=== PATIENT | male | born 1935 | race Caucasian/White ===

== ENCOUNTER 2018-12-25 20:39 | Inpatient (IN) ==
[2018-12-25 21:22] LABS: Basophils % 0.2 % (0.0-0.8); Eosinophils % 0.1 % (0.00-10.9); Hematocrit 36.1 VOL% (42.0-52.0); Immature Granulocytes % 0.5 %; Immature Granulocytes Absolute 0.05 #; Lymphocytes # 0.6 10*3/uL (1.4-4.0); Lymphocytes % 5.3 % (21.2-54.2); Mean Corpuscular HGB Conc 33.2 GM/DL (32-36); Mean Corpuscular Volume 105.6 FL (87-102); Mean Platelet Volume 9.7 FL (9.6-12.0); Monocytes % 6.4 % (1.7-12.7); Neutrophils % 87.5 % (38.7-73.9); Platelet Count 282 T/CUMM (130-400); Red Blood Count 3.42 MC/CUMM (3.8-5.5); White Blood Count 10.7 T/CUMM (4-12)
[2018-12-25 21:38] LABS: Albumin 3.4 G/DL (3.4-5.0); Bilirubin,Total 0.5 MG/DL (0.2-1.0); Calcium 8.5 MG/DL (8.5-10.1); Total Protein 7.2 G/DL (6.4-8.3)
[2018-12-25] MEDS ORDERED: CEFEPIME 2,000 MG in SODIUM CHLORIDE 0.9% 100 ML IV STA ×2 (22:16→22:18)
[2018-12-25] MEDS ORDERED: VANCOMYCIN INJ 1,000 MG in SODIUM CHLORIDE 0.9% 250 ML IV STA ×2 (22:16→22:20)
[2018-12-25] MEDS ORDERED: FUROSEMIDE 40 MG/4 ML VIAL IV STA (22:27)
[2018-12-25] MEDS ORDERED: ACETAMINOPHEN 325 MG TABLET PO PRN (22:30)
[2018-12-25] MEDS ORDERED: ONDANSETRON 4 MG/2 ML VIAL IV PRN (22:30)
[2018-12-26 00:05] LABS: Apearance,Urine CLEAR (Clear); Bilirubin,Urine Negative (Negative); Blood, Urine Negative (Negative); Glucose,Urine (UA) Negative (Negative); Ketones,Urine Negative (Negative); Mucus,Urine Occasional /LPF (Occasional); Nitrite,Urine Negative (Negative); Protein,Urine Negative; RBC,Urine 2 /HPF (0-4); Urine Color Yellow (Yellow); Urine Specific Gravity 1.016 (1.001-1.035); Urine Urobilinogen < 2.0 EU/DL (0.2-1.0); WBC,Urine 1 /HPF (0-6)
[2018-12-26] MEDS: ALBUTEROL/IPRATROPIUM 3 ML NEB RESP TX SCH ×4 (00:55→20:25)
[2018-12-26] MEDS: ATORVASTATIN 10 MG TABLET PO SCH (01:06)
[2018-12-26] MEDS: PANTOPRAZOLE 40 MG TABLET PO SCH ×3 (01:06→20:56)
[2018-12-26 05:21] LABS: Basophils % 0.1 % (0.0-0.8); Hematocrit 33.6 VOL% (42.0-52.0); Hemoglobin 11.2 GM/DL (14.0-18.0); Immature Granulocytes % 0.3 %; Immature Granulocytes Absolute 0.03 #; Lymphocytes # 0.5 10*3/uL (1.4-4.0); Lymphocytes % 5.2 % (21.2-54.2); Mean Corpuscular HGB Conc 33.3 GM/DL (32-36); Mean Corpuscular Volume 105.3 FL (87-102); Mean Platelet Volume 9.4 FL (9.6-12.0); Monocytes % 8.1 % (1.7-12.7); Neutrophils % 86.3 % (38.7-73.9); Platelet Count 256 T/CUMM (130-400); Red Blood Count 3.19 MC/CUMM (3.8-5.5); Red Cell Distribution Width 12.9 % (9.3-17.3); White Blood Count 9.9 T/CUMM (4-12)
[2018-12-26 05:46] LABS: Bilirubin,Total 0.5 MG/DL (0.2-1.0); Calcium 8.2 MG/DL (8.5-10.1); Osmolality,Calculated 275.8 MOS/KG (273-304); Total Protein 6.5 G/DL (6.4-8.3)
[2018-12-26] MEDS: CEFEPIME 2,000 MG in SODIUM CHLORIDE 0.9% 100 ML IV SCH ×3 (06:10→21:02)
[2018-12-26] MEDS ORDERED: HYDROXYCHLOROQUINE 200 MG TABLET PO SCH (09:00)
[2018-12-26] MEDS ORDERED: PNEUMOCOCCAL VACCINE (13 VALENT) 0.5 ML SYRINGE IM ONE (09:00)
[2018-12-26] MEDS ORDERED: SODIUM CHLORIDE 0.9% 1,000 ML IV SCH (11:00)
[2018-12-26] MEDS: VANCOMYCIN INJ 1,000 MG in SODIUM CHLORIDE 0.9% 250 ML IV SCH (12:25)
[2018-12-26] MEDS: SERTRALINE 100 MG TABLET PO SCH (12:26)
[2018-12-26] MEDS: FINASTERIDE 5 MG TABLET PO SCH (12:26)
[2018-12-26] MEDS: RANOLAZINE 500 MG TABLET PO SCH ×2 (12:26→20:56)
[2018-12-26] MEDS: MULTIVITAMIN (BEROCCA) TABLET PO SCH (12:26)
[2018-12-26] MEDS: CETIRIZINE 10 MG TABLET PO SCH (12:26)
[2018-12-26] MEDS: FEXOFENADINE 180 MG TABLET PO SCH (12:26)
[2018-12-26] MEDS: GEMFIBROZIL 600 MG TABLET PO SCH (12:27)
[2018-12-26] MEDS ORDERED: FUROSEMIDE 40 MG/4 ML VIAL ONE (14:48)
[2018-12-26] MEDS: methylPREDNISolone SOD SUC 125 MG/2 ML VIAL IV SCH ×2 (15:05→21:01)
[2018-12-26] MEDS: FUROSEMIDE 40 MG/4 ML VIAL IV SCH (15:07)
[2018-12-26] MEDS: MELATONIN 3 MG TABLET PO SCH (20:56)
[2018-12-26] MEDS: PYRIDOXINE 50 MG TABLET PO SCH (20:57)
[2018-12-27] MEDS: VANCOMYCIN INJ 1,000 MG in SODIUM CHLORIDE 0.9% 250 ML IV SCH ×2 (01:00→12:42)
[2018-12-27] MEDS: ALBUTEROL/IPRATROPIUM 3 ML NEB RESP TX SCH ×4 (01:34→19:52)
[2018-12-27 04:37] LABS: Hematocrit 33.4 VOL% (42.0-52.0); Hemoglobin 11.1 GM/DL (14.0-18.0); Immature Granulocytes % 0.3 %; Immature Granulocytes Absolute 0.03 #; Lymphocytes # 0.3 10*3/uL (1.4-4.0); Mean Corpuscular HGB Conc 33.2 GM/DL (32-36); Mean Corpuscular Volume 104.7 FL (87-102); Mean Platelet Volume 9.9 FL (9.6-12.0); Monocytes % 1.5 % (1.7-12.7); Neutrophils % 95.2 % (38.7-73.9); Platelet Count 276 T/CUMM (130-400); Red Blood Count 3.19 MC/CUMM (3.8-5.5); Red Cell Distribution Width 12.8 % (9.3-17.3); White Blood Count 9.1 T/CUMM (4-12)
[2018-12-27 04:57] LABS: Albumin 2.9 G/DL (3.4-5.0); Bilirubin,Total 0.7 MG/DL (0.2-1.0); Calcium 8.6 MG/DL (8.5-10.1); Osmolality,Calculated 295.8 MOS/KG (273-304); Total Protein 6.3 G/DL (6.4-8.3)
[2018-12-27] MEDS: methylPREDNISolone SOD SUC 125 MG/2 ML VIAL IV SCH ×3 (05:26→21:10)
[2018-12-27] MEDS: CEFEPIME 2,000 MG in SODIUM CHLORIDE 0.9% 100 ML IV SCH ×3 (05:26→21:10)
[2018-12-27 05:43] LABS: Lymphocytes 6 % (20-55); Segmented Neutrophils 93 % (50-85); Total Cells Counted 100
[2018-12-27 05:44] LABS: Anisocytosis 1+; Platelet Estimate Normal
[2018-12-27] MEDS: MULTIVITAMIN (BEROCCA) TABLET PO SCH (08:46)
[2018-12-27] MEDS: PANTOPRAZOLE 40 MG TABLET PO SCH ×2 (08:46→21:11)
[2018-12-27] MEDS: RANOLAZINE 500 MG TABLET PO SCH ×2 (08:46→21:11)
[2018-12-27] MEDS: CETIRIZINE 10 MG TABLET PO SCH (08:46)
[2018-12-27] MEDS: GEMFIBROZIL 600 MG TABLET PO SCH (08:46)
[2018-12-27] MEDS: FINASTERIDE 5 MG TABLET PO SCH (08:46)
[2018-12-27] MEDS: FEXOFENADINE 180 MG TABLET PO SCH (08:46)
[2018-12-27] MEDS: SERTRALINE 100 MG TABLET PO SCH (08:46)
[2018-12-27] MEDS: FUROSEMIDE 40 MG/4 ML VIAL IV SCH (08:46)
[2018-12-27] MEDS: carvediloL 3.125 MG TABLET PO SCH ×2 (10:42→21:11)
[2018-12-27] MEDS: NITROGLYCERIN 2% OINT 1 INCH/GM PACK TOP SCH ×2 (12:42→17:45)
[2018-12-27] MEDS: MELATONIN 3 MG TABLET PO SCH (21:11)
[2018-12-27] MEDS: PYRIDOXINE 50 MG TABLET PO SCH (22:04)
[2018-12-28] MEDS: VANCOMYCIN INJ 1,000 MG in SODIUM CHLORIDE 0.9% 250 ML IV SCH (00:15)
[2018-12-28] MEDS: NITROGLYCERIN 2% OINT 1 INCH/GM PACK TOP SCH ×4 (00:15→17:54)
[2018-12-28] MEDS: ALBUTEROL/IPRATROPIUM 3 ML NEB RESP TX SCH ×4 (00:30→18:42)
[2018-12-28 05:06] LABS: Basophils % 0.1 % (0.0-0.8); Hematocrit 32.4 VOL% (42.0-52.0); Hemoglobin 10.9 GM/DL (14.0-18.0); Immature Granulocytes % 0.8 %; Immature Granulocytes Absolute 0.14 #; Lymphocytes # 0.3 10*3/uL (1.4-4.0); Lymphocytes % 1.8 % (21.2-54.2); Mean Corpuscular HGB Conc 33.6 GM/DL (32-36); Mean Corpuscular Volume 102.9 FL (87-102); Mean Platelet Volume 9.7 FL (9.6-12.0); Monocytes % 2.8 % (1.7-12.7); Neutrophils % 94.5 % (38.7-73.9); Platelet Count 328 T/CUMM (130-400); Red Blood Count 3.15 MC/CUMM (3.8-5.5); White Blood Count 16.9 T/CUMM (4-12)
[2018-12-28 05:26] LABS: Albumin 2.7 G/DL (3.4-5.0); Bilirubin,Total 0.6 MG/DL (0.2-1.0); Calcium 8.7 MG/DL (8.5-10.1); Osmolality,Calculated 293.4 MOS/KG (273-304); Total Protein 6.5 G/DL (6.4-8.3)
[2018-12-28 05:32] LABS: Lymphocytes 1 % (20-55); Segmented Neutrophils 96 % (50-85); Total Cells Counted 100
[2018-12-28 05:33] LABS: Hypochromasia 1+; Ovalocytes Slight; Platelet Estimate Adequate
[2018-12-28] MEDS: CEFEPIME 2,000 MG in SODIUM CHLORIDE 0.9% 100 ML IV SCH (06:01)
[2018-12-28] MEDS: methylPREDNISolone SOD SUC 125 MG/2 ML VIAL IV SCH ×3 (06:02→22:13)
[2018-12-28 11:59] LABS: Folate > 24.0 NG/ML (5.4-24.0); Vitamin B12 1136 PG/ML (211-911)
[2018-12-28] MEDS: MEROPENEM 500 MG in SODIUM CHLORIDE 0.9% 100 ML IV SCH ×2 (12:33→20:02)
[2018-12-28] MEDS: RANOLAZINE 500 MG TABLET PO SCH ×2 (12:46→22:13)
[2018-12-28] MEDS: GEMFIBROZIL 600 MG TABLET PO SCH (12:47)
[2018-12-28] MEDS: FINASTERIDE 5 MG TABLET PO SCH (12:47)
[2018-12-28] MEDS: carvediloL 3.125 MG TABLET PO SCH (12:47)
[2018-12-28] MEDS: MULTIVITAMIN (BEROCCA) TABLET PO SCH (12:47)
[2018-12-28] MEDS: CETIRIZINE 10 MG TABLET PO SCH (12:47)
[2018-12-28] MEDS: SERTRALINE 100 MG TABLET PO SCH (12:47)
[2018-12-28] MEDS: FEXOFENADINE 180 MG TABLET PO SCH (12:47)
[2018-12-28] MEDS: PANTOPRAZOLE 40 MG TABLET PO SCH ×2 (12:48→22:13)
[2018-12-28] MEDS: carvediloL 6.25 MG TABLET PO SCH (22:13)
[2018-12-28] MEDS: PYRIDOXINE 50 MG TABLET PO SCH (22:13)
[2018-12-28] MEDS: MELATONIN 3 MG TABLET PO SCH (22:13)
[2018-12-29] MEDS: NITROGLYCERIN 2% OINT 1 INCH/GM PACK TOP SCH ×4 (00:28→17:07)
[2018-12-29] MEDS: MEROPENEM 500 MG in SODIUM CHLORIDE 0.9% 100 ML IV SCH ×3 (03:36→20:19)
[2018-12-29 04:37] LABS: Basophils % 0.1 % (0.0-0.8); Hematocrit 32.6 VOL% (42.0-52.0); Hemoglobin 10.9 GM/DL (14.0-18.0); Immature Granulocytes % 1.1 %; Immature Granulocytes Absolute 0.17 #; Lymphocytes # 0.3 10*3/uL (1.4-4.0); Mean Corpuscular HGB Conc 33.4 GM/DL (32-36); Mean Corpuscular Volume 102.8 FL (87-102); Mean Platelet Volume 9.7 FL (9.6-12.0); Monocytes % 3.3 % (1.7-12.7); Neutrophils % 93.5 % (38.7-73.9); Platelet Count 342 T/CUMM (130-400); Red Blood Count 3.17 MC/CUMM (3.8-5.5); Red Cell Distribution Width 12.7 % (9.3-17.3); White Blood Count 15.9 T/CUMM (4-12)
[2018-12-29 05:04] LABS: Calcium 8.5 MG/DL (8.5-10.1); Osmolality,Calculated 290.8 MOS/KG (273-304)
[2018-12-29 05:06] LABS: Hypochromasia 1+; Platelet Estimate Adequate
[2018-12-29] MEDS: methylPREDNISolone SOD SUC 125 MG/2 ML VIAL IV SCH ×3 (05:36→21:01)
[2018-12-29] MEDS: ALBUTEROL/IPRATROPIUM 3 ML NEB RESP TX SCH ×4 (06:59→19:51)
[2018-12-29] MEDS: PANTOPRAZOLE 40 MG TABLET PO SCH ×2 (10:29→21:01)
[2018-12-29] MEDS: GEMFIBROZIL 600 MG TABLET PO SCH (10:29)
[2018-12-29] MEDS: RANOLAZINE 500 MG TABLET PO SCH ×2 (10:29→21:00)
[2018-12-29] MEDS: FEXOFENADINE 180 MG TABLET PO SCH (10:29)
[2018-12-29] MEDS: FINASTERIDE 5 MG TABLET PO SCH (10:30)
[2018-12-29] MEDS: MULTIVITAMIN (BEROCCA) TABLET PO SCH (10:30)
[2018-12-29] MEDS: SERTRALINE 100 MG TABLET PO SCH (10:30)
[2018-12-29] MEDS: CETIRIZINE 10 MG TABLET PO SCH (10:30)
[2018-12-29] MEDS: carvediloL 6.25 MG TABLET PO SCH ×2 (10:30→21:01)
[2018-12-29] MEDS: FUROSEMIDE 20 MG/2 ML VIAL IV SCH ×2 (10:31→17:07)
[2018-12-29] MEDS: ATORVASTATIN 10 MG TABLET PO SCH (10:38)
[2018-12-29 14:09] LABS: Myeloperoxidase Antibody < 0.2 U
[2018-12-29] MEDS: POTASSIUM CHLORIDE 10 MEQ TABLET PO SCH ×2 (15:04→21:00)
[2018-12-29] MEDS: MELATONIN 3 MG TABLET PO SCH (21:00)
[2018-12-29] MEDS: PYRIDOXINE 50 MG TABLET PO SCH (21:00)
[2018-12-30] MEDS: NITROGLYCERIN 2% OINT 1 INCH/GM PACK TOP SCH ×4 (00:09→18:57)
[2018-12-30] MEDS: ALBUTEROL/IPRATROPIUM 3 ML NEB RESP TX SCH ×2 (01:56→08:04)
[2018-12-30] MEDS: FUROSEMIDE 20 MG/2 ML VIAL IV SCH (03:15)
[2018-12-30] MEDS: MEROPENEM 500 MG in SODIUM CHLORIDE 0.9% 100 ML IV SCH ×3 (03:22→21:48)
[2018-12-30 05:15] LABS: Basophils % 0.1 % (0.0-0.8); Hematocrit 31.7 VOL% (42.0-52.0); Hemoglobin 10.6 GM/DL (14.0-18.0); Immature Granulocytes % 0.9 %; Immature Granulocytes Absolute 0.12 #; Lymphocytes # 0.3 10*3/uL (1.4-4.0); Lymphocytes % 2.3 % (21.2-54.2); Mean Corpuscular HGB Conc 33.4 GM/DL (32-36); Mean Corpuscular Volume 103.3 FL (87-102); Mean Platelet Volume 9.7 FL (9.6-12.0); Monocytes % 3.2 % (1.7-12.7); Neutrophils % 93.5 % (38.7-73.9); Platelet Count 338 T/CUMM (130-400); Red Blood Count 3.07 MC/CUMM (3.8-5.5); Red Cell Distribution Width 12.8 % (9.3-17.3); White Blood Count 13.2 T/CUMM (4-12)
[2018-12-30 05:27] LABS: INR 1.1; PT Patient Result 11.5 SECS (9.6-12.2); Partial Thromboplastin Time 24.7 SECS (20.8-36.0)
[2018-12-30 05:40] LABS: Lymphocytes 1 % (20-55); Platelet Estimate Adequate; Segmented Neutrophils 95 % (50-85); Total Cells Counted 100
[2018-12-30 05:41] LABS: Hypochromasia 1+; Ovalocytes Slight
[2018-12-30 05:45] LABS: Calcium 9.2 MG/DL (8.5-10.1); Osmolality,Calculated 304.1 MOS/KG (273-304)
[2018-12-30] MEDS: methylPREDNISolone SOD SUC 125 MG/2 ML VIAL IV SCH ×3 (06:42→22:45)
[2018-12-30] MEDS ORDERED: diphenhydrAMINE 50 MG/1 ML VIAL IM ONE (08:00)
[2018-12-30] MEDS ORDERED: BENZONATATE 100 MG CAPSULE PO ONE (08:00)
[2018-12-30] MEDS ORDERED: LIDOCAINE 1% 20 ML VIAL MISC INJ ONE (08:30)
[2018-12-30] MEDS ORDERED: LIDOCAINE 2% 20 ML VIAL RESP TX ONE (08:30)
[2018-12-30] MEDS ORDERED: LIDOCAINE 2% VISCOUS 100 ML BOTTLE SWISH/SPIT ONE (08:30)
[2018-12-30] MEDS: POTASSIUM CHLORIDE 10 MEQ TABLET PO SCH ×3 (11:15→21:41)
[2018-12-30] MEDS: GEMFIBROZIL 600 MG TABLET PO SCH (11:16)
[2018-12-30] MEDS: RANOLAZINE 500 MG TABLET PO SCH ×2 (11:16→21:41)
[2018-12-30] MEDS: FEXOFENADINE 180 MG TABLET PO SCH (11:17)
[2018-12-30] MEDS: MULTIVITAMIN (BEROCCA) TABLET PO SCH (11:18)
[2018-12-30] MEDS: FINASTERIDE 5 MG TABLET PO SCH (11:18)
[2018-12-30] MEDS: PANTOPRAZOLE 40 MG TABLET PO SCH ×2 (11:19→21:41)
[2018-12-30] MEDS: CETIRIZINE 10 MG TABLET PO SCH (11:19)
[2018-12-30] MEDS: carvediloL 6.25 MG TABLET PO SCH ×2 (11:20→21:41)
[2018-12-30] MEDS: SERTRALINE 100 MG TABLET PO SCH (11:20)
[2018-12-30] MEDS: IPRATROPIUM 500 MCG/2.5 ML NEB RESP TX SCH (15:53)
[2018-12-30] MEDS ORDERED: DONEPEZIL 5 MG TABLET PO SCH (21:00)
[2018-12-30] MEDS: PYRIDOXINE 50 MG TABLET PO SCH (21:41)
[2018-12-30] MEDS: MELATONIN 3 MG TABLET PO SCH (21:51)
[2018-12-31] MEDS: IPRATROPIUM 500 MCG/2.5 ML NEB RESP TX SCH ×4 (00:17→23:10)
[2018-12-31] MEDS: NITROGLYCERIN 2% OINT 1 INCH/GM PACK TOP SCH ×5 (00:17→23:44)
[2018-12-31] MEDS: MEROPENEM 500 MG in SODIUM CHLORIDE 0.9% 100 ML IV SCH ×3 (04:09→21:23)
[2018-12-31 05:21] LABS: Basophils % 0.1 % (0.0-0.8); Hematocrit 34.9 VOL% (42.0-52.0); Hemoglobin 11.6 GM/DL (14.0-18.0); Immature Granulocytes % 0.8 %; Immature Granulocytes Absolute 0.12 #; Lymphocytes # 0.4 10*3/uL (1.4-4.0); Lymphocytes % 2.8 % (21.2-54.2); Mean Corpuscular HGB Conc 33.2 GM/DL (32-36); Mean Corpuscular Volume 104.2 FL (87-102); Mean Platelet Volume 9.7 FL (9.6-12.0); Monocytes % 4.5 % (1.7-12.7); Neutrophils % 91.8 % (38.7-73.9); Platelet Count 396 T/CUMM (130-400); Red Blood Count 3.35 MC/CUMM (3.8-5.5); Red Cell Distribution Width 12.8 % (9.3-17.3); White Blood Count 14.8 T/CUMM (4-12)
[2018-12-31 05:45] LABS: Hypochromasia 1+; Lymphocytes 1 % (20-55); Ovalocytes Slight; Platelet Estimate Adequate; Segmented Neutrophils 94 % (50-85); Total Cells Counted 100
[2018-12-31 05:51] LABS: Calcium 8.8 MG/DL (8.5-10.1); Osmolality,Calculated 300.4 MOS/KG (273-304)
[2018-12-31] MEDS: carvediloL 6.25 MG TABLET PO SCH ×2 (09:29→21:18)
[2018-12-31] MEDS: FEXOFENADINE 180 MG TABLET PO SCH (09:29)
[2018-12-31] MEDS: FINASTERIDE 5 MG TABLET PO SCH (09:29)
[2018-12-31] MEDS: CETIRIZINE 10 MG TABLET PO SCH (09:29)
[2018-12-31] MEDS: PANTOPRAZOLE 40 MG TABLET PO SCH ×2 (09:29→21:18)
[2018-12-31] MEDS: GEMFIBROZIL 600 MG TABLET PO SCH (09:29)
[2018-12-31] MEDS: MULTIVITAMIN (BEROCCA) TABLET PO SCH (09:30)
[2018-12-31] MEDS: MEMANTINE 5 MG TABLET PO SCH (09:30)
[2018-12-31] MEDS: SERTRALINE 100 MG TABLET PO SCH (09:30)
[2018-12-31] MEDS: POTASSIUM CHLORIDE 10 MEQ TABLET PO SCH ×3 (09:30→21:18)
[2018-12-31] MEDS: RANOLAZINE 500 MG TABLET PO SCH ×2 (09:30→21:18)
[2018-12-31] MEDS: methylPREDNISolone SOD SUC 125 MG/2 ML VIAL IV SCH ×2 (11:09→23:43)
[2018-12-31] MEDS: MELATONIN 3 MG TABLET PO SCH (21:18)
[2018-12-31] MEDS: PYRIDOXINE 50 MG TABLET PO SCH (21:18)
[2019-01-01] MEDS: MEROPENEM 500 MG in SODIUM CHLORIDE 0.9% 100 ML IV SCH (03:43)
[2019-01-01] MEDS: NITROGLYCERIN 2% OINT 1 INCH/GM PACK TOP SCH (05:44)
[2019-01-01 06:48] LABS: Basophils % 0.1 % (0.0-0.8); Hematocrit 33.2 VOL% (42.0-52.0); Hemoglobin 10.8 GM/DL (14.0-18.0); Immature Granulocytes % 0.6 %; Immature Granulocytes Absolute 0.09 #; Lymphocytes # 0.5 10*3/uL (1.4-4.0); Lymphocytes % 3.2 % (21.2-54.2); Mean Corpuscular HGB Conc 32.5 GM/DL (32-36); Mean Corpuscular Volume 105.1 FL (87-102); Mean Platelet Volume 9.5 FL (9.6-12.0); Monocytes % 4.3 % (1.7-12.7); Neutrophils % 91.8 % (38.7-73.9); Platelet Count 331 T/CUMM (130-400); Red Blood Count 3.16 MC/CUMM (3.8-5.5); Red Cell Distribution Width 13.1 % (9.3-17.3); White Blood Count 13.9 T/CUMM (4-12)
[2019-01-01 07:15] LABS: Calcium 8.4 MG/DL (8.5-10.1); Osmolality,Calculated 301.4 MOS/KG (273-304)
[2019-01-01 07:44] LABS: Hypochromasia 1+; Lymphocytes 4 % (20-55); Platelet Estimate Adequate; Segmented Neutrophils 92 % (50-85); Total Cells Counted 100
[2019-01-01] MEDS: IPRATROPIUM 500 MCG/2.5 ML NEB RESP TX SCH (08:08)
[2019-01-01] MEDS ORDERED: ASPIRIN EC 81 MG TABLET PO SCH (09:00)
[2019-01-01] MEDS: POTASSIUM CHLORIDE 10 MEQ TABLET PO SCH (09:37)
[2019-01-01] MEDS: FEXOFENADINE 180 MG TABLET PO SCH (09:39)
[2019-01-01] MEDS: MULTIVITAMIN (BEROCCA) TABLET PO SCH (09:39)
[2019-01-01] MEDS: GEMFIBROZIL 600 MG TABLET PO SCH (09:39)
[2019-01-01] MEDS: PANTOPRAZOLE 40 MG TABLET PO SCH (09:40)
[2019-01-01] MEDS: SERTRALINE 100 MG TABLET PO SCH (09:40)
[2019-01-01] MEDS: CETIRIZINE 10 MG TABLET PO SCH (09:40)
[2019-01-01] MEDS: MEMANTINE 5 MG TABLET PO SCH (09:40)
[2019-01-01] MEDS: FINASTERIDE 5 MG TABLET PO SCH (09:40)
[2019-01-01] MEDS: carvediloL 6.25 MG TABLET PO SCH (09:41)
[2019-01-01] MEDS: RANOLAZINE 500 MG TABLET PO SCH (09:41)
[2019-01-01] MEDS: ATORVASTATIN 10 MG TABLET PO SCH (09:49)
[2019-01-01] MEDS: methylPREDNISolone SOD SUC 125 MG/2 ML VIAL IV SCH (09:50)
[2019-01-01 12:10] VITALS: BP 113/70
[2019-01-01] MEDS ORDERED: PNEUMOCOCCAL VACCINE (23 VALENT) 0.5 ML VIAL IM ONE (12:20)
== END 2019-01-01 12:32 | disposition home or self-care (01) | DRG 280 ==
LOC: N.ED 20:39 → N.EDINP 22:30 → SUATTDRO 22:30 → N.TELEN 23:54
PROVIDERS: ADMIT Internal Medicine; ATTEND Internal Medicine

== ENCOUNTER 2019-01-04 16:42 | Inpatient (IN) ==
[2019-01-04] MEDS ORDERED: MAGNESIUM SULF RIDER 2 GM in PREMIX 1 EACH IV PRN (20:31)
[2019-01-04] MEDS ORDERED: ONDANSETRON 4 MG/2 ML VIAL IV PRN (20:31)
[2019-01-04] MEDS ORDERED: ALBUTEROL/IPRATROPIUM 3 ML NEB RESP TX PRN (20:31)
[2019-01-04] MEDS ORDERED: MAGNESIUM SULF RIDER 4 GM in PREMIX 1 EACH IV PRN (20:31)
[2019-01-04] MEDS ORDERED: ENOXAPARIN 40 MG/0.4 ML SYRINGE SUBCUT SCH (21:00)
[2019-01-04 21:52] LABS: Basophils % 0.1 % (0.0-0.8); Hemoglobin 10.9 GM/DL (14.0-18.0); Immature Granulocytes % 1.5 %; Immature Granulocytes Absolute 0.25 #; Lymphocytes # 0.6 10*3/uL (1.4-4.0); Lymphocytes % 3.9 % (21.2-54.2); Mean Corpuscular Volume 104.1 FL (87-102); Mean Platelet Volume 10.6 FL (9.6-12.0); Monocytes % 5.1 % (1.7-12.7); NRBC # 0.31 10*3/uL; Neutrophils % 89.4 % (38.7-73.9); Platelet Count 238 T/CUMM (130-400); Red Blood Count 3.17 MC/CUMM (3.8-5.5); Red Cell Distribution Width 13.4 % (9.3-17.3); White Blood Count 16.3 T/CUMM (4-12)
[2019-01-04 22:20] LABS: Albumin 2.9 G/DL (3.4-5.0); Bilirubin,Total 1.9 MG/DL (0.2-1.0); Calcium 9.1 MG/DL (8.5-10.1); Osmolality,Calculated 319.4 MOS/KG (273-304); Risk Ratio 4.88; Thyroid Stimulating Hormone 0.404 uIU/ml (0.358-3.74); VLDL CHOLESTEROL 47.4 MG/DL
[2019-01-04] MEDS: DEXTROSE 5% NACL 0.45% 1,000 ML IV SCH (22:40)
[2019-01-04] MEDS: PIPERACILLIN/TAZOBACTAM 3,375 MG in SODIUM CHLORIDE 0.9% 100 ML IV SCH (22:42)
[2019-01-04] MEDS: RANOLAZINE 500 MG TABLET PO SCH (23:24)
[2019-01-04] MEDS: carvediloL 6.25 MG TABLET PO SCH (23:24)
[2019-01-05 03:59] LABS: Platelet Estimate Normal
[2019-01-05 04:00] LABS: Polychromasia Few
[2019-01-05 05:43] LABS: Basophils % 0.1 % (0.0-0.8); Hematocrit 33.3 VOL% (42.0-52.0); Hemoglobin 11.1 GM/DL (14.0-18.0); Immature Granulocytes % 1.6 %; Immature Granulocytes Absolute 0.28 #; Lymphocytes # 0.6 10*3/uL (1.4-4.0); Lymphocytes % 3.4 % (21.2-54.2); Mean Corpuscular HGB Conc 33.3 GM/DL (32-36); Mean Corpuscular Volume 103.7 FL (87-102); Mean Platelet Volume 11.1 FL (9.6-12.0); Monocytes % 4.8 % (1.7-12.7); NRBC # 0.43 10*3/uL; Neutrophils % 90.1 % (38.7-73.9); Platelet Count 222 T/CUMM (130-400); Red Blood Count 3.21 MC/CUMM (3.8-5.5); Red Cell Distribution Width 13.4 % (9.3-17.3); White Blood Count 17.6 T/CUMM (4-12)
[2019-01-05 06:15] LABS: Lymphocytes 4 % (20-55); Nucleated Red Blood Cells 2 (0-5); Platelet Estimate Normal; Polychromasia Few; Segmented Neutrophils 94 % (50-85); Total Cells Counted 100
[2019-01-05 06:19] LABS: Albumin 2.7 G/DL (3.4-5.0); Bilirubin,Total 2.1 MG/DL (0.2-1.0); Calcium 8.6 MG/DL (8.5-10.1); Osmolality,Calculated 317.5 MOS/KG (273-304); Total Protein 5.6 G/DL (6.4-8.3)
[2019-01-05] MEDS: PIPERACILLIN/TAZOBACTAM 3,375 MG in SODIUM CHLORIDE 0.9% 100 ML IV SCH (06:21)
[2019-01-05] MEDS ORDERED: FUROSEMIDE 40 MG/4 ML VIAL IV SCH (08:00)
[2019-01-05] MEDS: GEMFIBROZIL 600 MG TABLET PO SCH (09:56)
[2019-01-05] MEDS: FINASTERIDE 5 MG TABLET PO SCH (09:57)
[2019-01-05] MEDS: carvediloL 6.25 MG TABLET PO SCH ×2 (09:57→18:13)
[2019-01-05] MEDS: SERTRALINE 100 MG TABLET PO SCH (09:57)
[2019-01-05] MEDS: FEXOFENADINE 180 MG TABLET PO SCH (09:57)
[2019-01-05] MEDS: PANTOPRAZOLE 40 MG TABLET PO SCH (09:57)
[2019-01-05] MEDS: ASPIRIN CHEW 81 MG TABLET PO SCH (09:57)
[2019-01-05] MEDS: MEMANTINE 5 MG TABLET PO SCH (09:57)
[2019-01-05] MEDS: RANOLAZINE 500 MG TABLET PO SCH ×2 (09:57→22:12)
[2019-01-05] MEDS: HYDROXYCHLOROQUINE 200 MG TABLET PO SCH (09:57)
[2019-01-05] MEDS ORDERED: ALBUTEROL/IPRATROPIUM 3 ML NEB RESP TX ONE (12:14)
[2019-01-05] MEDS ORDERED: HALOPERIDOL 5 MG/ML AMP IV PRN (12:16)
[2019-01-05] MEDS ORDERED: diphenhydrAMINE 50 MG/1 ML VIAL IV PRN (12:17)
[2019-01-05] MEDS: MEROPENEM 500 MG in SODIUM CHLORIDE 0.9% 100 ML IV SCH (18:01)
[2019-01-05] MEDS: MULTIVITAMIN (BEROCCA) TABLET PO SCH (18:04)
[2019-01-05] MEDS: ACETAMINOPHEN 325 MG TABLET PO PRN ×2 (18:13→22:11)
[2019-01-05] MEDS ORDERED: ENOXAPARIN 30 MG/0.3 ML SYRINGE SUBCUT SCH (21:00)
[2019-01-05] MEDS ORDERED: ATORVASTATIN 10 MG TABLET PO SCH (21:26)
[2019-01-06] MEDS: MEROPENEM 500 MG in SODIUM CHLORIDE 0.9% 100 ML IV SCH ×2 (01:49→14:41)
[2019-01-06 05:22] LABS: Basophils % 0.1 % (0.0-0.8); Hematocrit 32.8 VOL% (42.0-52.0); Hemoglobin 11.1 GM/DL (14.0-18.0); Immature Granulocytes % 1.4 %; Immature Granulocytes Absolute 0.29 #; Lymphocytes # 0.6 10*3/uL (1.4-4.0); Mean Corpuscular HGB Conc 33.8 GM/DL (32-36); Mean Corpuscular Volume 103.8 FL (87-102); Mean Platelet Volume 11.7 FL (9.6-12.0); Monocytes % 4.1 % (1.7-12.7); NRBC # 1.04 10*3/uL; Neutrophils % 91.4 % (38.7-73.9); Platelet Count 181 T/CUMM (130-400); Red Blood Count 3.16 MC/CUMM (3.8-5.5); Red Cell Distribution Width 13.8 % (9.3-17.3); White Blood Count 20.9 T/CUMM (4-12)
[2019-01-06] MEDS: ACETAMINOPHEN 325 MG TABLET PO PRN (05:38)
[2019-01-06 05:46] LABS: Albumin 2.6 G/DL (3.4-5.0); Bilirubin,Total 1.2 MG/DL (0.2-1.0); Calcium 8.5 MG/DL (8.5-10.1); Osmolality,Calculated 324.8 MOS/KG (273-304); Total Protein 5.6 G/DL (6.4-8.3)
[2019-01-06 05:51] LABS: Band Neutrophils 1 % (0-10); Eosinophils 1 % (0-10); Nucleated Red Blood Cells 2 (0-5); Platelet Estimate Normal; Segmented Neutrophils 95 % (50-85); Total Cells Counted 100
[2019-01-06] MEDS: RANOLAZINE 500 MG TABLET PO SCH ×2 (10:18→21:20)
[2019-01-06] MEDS: FINASTERIDE 5 MG TABLET PO SCH (10:18)
[2019-01-06] MEDS: HYDROXYCHLOROQUINE 200 MG TABLET PO SCH (10:18)
[2019-01-06] MEDS: SERTRALINE 100 MG TABLET PO SCH (10:18)
[2019-01-06] MEDS: FEXOFENADINE 180 MG TABLET PO SCH (10:19)
[2019-01-06] MEDS: ASPIRIN CHEW 81 MG TABLET PO SCH (10:19)
[2019-01-06] MEDS: GEMFIBROZIL 600 MG TABLET PO SCH (10:19)
[2019-01-06] MEDS: FUROSEMIDE 40 MG TABLET PO SCH (10:19)
[2019-01-06] MEDS: MEMANTINE 5 MG TABLET PO SCH (10:19)
[2019-01-06] MEDS: PANTOPRAZOLE 40 MG TABLET PO SCH (10:19)
[2019-01-06] MEDS: carvediloL 6.25 MG TABLET PO SCH ×2 (10:20→16:35)
[2019-01-06] MEDS: MULTIVITAMIN (BEROCCA) TABLET PO SCH (10:26)
[2019-01-06] MEDS ORDERED: LIDOCAINE 2% TOP JELLY 20 ML VIAL INTRAURETH ONE (12:03)
[2019-01-06] MEDS: TAMSULOSIN 0.4 MG CAPSULE PO SCH (14:41)
[2019-01-06 16:25] LABS: Creatinine,Urine Random 51 MG/DL; Total Protein,Urine Random 932 MG/DL; Urea Nitrogen, Urine Random 560 MG/DL
[2019-01-07] MEDS: MEROPENEM 500 MG in SODIUM CHLORIDE 0.9% 100 ML IV SCH ×2 (00:20→11:36)
[2019-01-07 06:02] LABS: Basophils % 0.2 % (0.0-0.8); Eosinophils % 0.1 % (0.00-10.9); Hematocrit 34.3 VOL% (42.0-52.0); Hemoglobin 11.2 GM/DL (14.0-18.0); Immature Granulocytes Absolute 0.26 #; Lymphocytes # 0.7 10*3/uL (1.4-4.0); Lymphocytes % 2.9 % (21.2-54.2); Mean Corpuscular HGB Conc 32.7 GM/DL (32-36); Mean Corpuscular Volume 107.2 FL (87-102); Mean Platelet Volume 12.1 FL (9.6-12.0); Monocytes % 3.3 % (1.7-12.7); NRBC # 0.65 10*3/uL; Neutrophils % 92.5 % (38.7-73.9); Platelet Count 165 T/CUMM (130-400); Red Cell Distribution Width 14.3 % (9.3-17.3); White Blood Count 24.8 T/CUMM (4-12)
[2019-01-07 06:15] LABS: Hypochromasia 1+; Lymphocytes 1 % (20-55); Ovalocytes Slight; Platelet Estimate Adequate; Segmented Neutrophils 97 % (50-85); Total Cells Counted 100
[2019-01-07 06:20] LABS: Albumin 2.3 G/DL (3.4-5.0); Bilirubin,Total 1.5 MG/DL (0.2-1.0); Calcium 8.3 MG/DL (8.5-10.1); Total Protein 5.5 G/DL (6.4-8.3)
[2019-01-07] MEDS: DEXTROSE 5% NACL 0.45% 1,000 ML IV SCH ×3 (09:48→22:04)
[2019-01-07] MEDS: TAMSULOSIN 0.4 MG CAPSULE PO SCH (09:53)
[2019-01-07] MEDS: RANOLAZINE 500 MG TABLET PO SCH ×2 (09:54→21:02)
[2019-01-07] MEDS: HYDROXYCHLOROQUINE 200 MG TABLET PO SCH (09:54)
[2019-01-07] MEDS: FEXOFENADINE 180 MG TABLET PO SCH (09:54)
[2019-01-07] MEDS: MULTIVITAMIN (BEROCCA) TABLET PO SCH (09:54)
[2019-01-07] MEDS: SERTRALINE 100 MG TABLET PO SCH (09:54)
[2019-01-07] MEDS: carvediloL 6.25 MG TABLET PO SCH ×2 (09:54→17:22)
[2019-01-07] MEDS: GEMFIBROZIL 600 MG TABLET PO SCH (09:54)
[2019-01-07] MEDS: FINASTERIDE 5 MG TABLET PO SCH (09:54)
[2019-01-07] MEDS: PANTOPRAZOLE 40 MG TABLET PO SCH (09:54)
[2019-01-07] MEDS: FUROSEMIDE 40 MG TABLET PO SCH (10:02)
[2019-01-07] MEDS: ALBUMIN 25% 25 GM in PREMIX 1 EACH IV SCH ×2 (12:56→21:00)
[2019-01-07] MEDS: carvediloL 3.125 MG TABLET PO SCH (21:32)
[2019-01-08] MEDS: MEROPENEM 500 MG in SODIUM CHLORIDE 0.9% 100 ML IV SCH ×2 (00:16→12:49)
[2019-01-08 05:08] LABS: Basophils % 0.1 % (0.0-0.8); Eosinophils # 0.1 10*3/uL (0.0-0.87); Eosinophils % 0.7 % (0.00-10.9); Hemoglobin 9.4 GM/DL (14.0-18.0); Immature Granulocytes Absolute 0.18 #; Lymphocytes # 0.6 10*3/uL (1.4-4.0); Lymphocytes % 3.1 % (21.2-54.2); Mean Corpuscular HGB Conc 33.6 GM/DL (32-36); Mean Corpuscular Volume 104.1 FL (87-102); Mean Platelet Volume 11.9 FL (9.6-12.0); Monocytes % 3.2 % (1.7-12.7); NRBC # 0.58 10*3/uL; Neutrophils % 91.9 % (38.7-73.9); Platelet Count 137 T/CUMM (130-400); Red Blood Count 2.69 MC/CUMM (3.8-5.5); Red Cell Distribution Width 14.3 % (9.3-17.3); White Blood Count 18.5 T/CUMM (4-12)
[2019-01-08] MEDS: ALBUMIN 25% 25 GM in PREMIX 1 EACH IV SCH ×3 (05:27→21:30)
[2019-01-08 05:47] LABS: Lymphocytes 4 % (20-55); Nucleated Red Blood Cells 1 (0-5); Segmented Neutrophils 96 % (50-85); Total Cells Counted 100
[2019-01-08 05:48] LABS: Anisocytosis Slight; Macrocytosis 1+; Platelet Estimate Normal; Polychromasia Few
[2019-01-08 05:56] LABS: Albumin 2.9 G/DL (3.4-5.0); Bilirubin,Total 1.1 MG/DL (0.2-1.0); Calcium 8.2 MG/DL (8.5-10.1); Osmolality,Calculated 328.7 MOS/KG (273-304); Total Protein 5.6 G/DL (6.4-8.3)
[2019-01-08 05:57] LABS: Ovalocytes Slight
[2019-01-08 06:36] LABS: Hepatitis B Core IgM Quant 0.07 Index; Hepatitis B Surface Ag Quant < 0.10 Index; Hepatitis B Surface Ag Result Negative (Negative); Hepatitis C Virus Ab Quant < 0.02 Index; Hepatitis C Virus Ab Result Negative (Negative)
[2019-01-08] MEDS: FINASTERIDE 5 MG TABLET PO SCH (09:15)
[2019-01-08] MEDS: TAMSULOSIN 0.4 MG CAPSULE PO SCH (09:15)
[2019-01-08] MEDS: GEMFIBROZIL 600 MG TABLET PO SCH (09:15)
[2019-01-08] MEDS: HYDROXYCHLOROQUINE 200 MG TABLET PO SCH (09:15)
[2019-01-08] MEDS: SERTRALINE 100 MG TABLET PO SCH (09:15)
[2019-01-08] MEDS: RANOLAZINE 500 MG TABLET PO SCH ×2 (09:15→21:30)
[2019-01-08] MEDS: ASPIRIN EC 81 MG TABLET PO SCH (09:15)
[2019-01-08] MEDS: FEXOFENADINE 180 MG TABLET PO SCH (09:15)
[2019-01-08] MEDS: carvediloL 3.125 MG TABLET PO SCH ×2 (09:15→17:46)
[2019-01-08] MEDS: MULTIVITAMIN (BEROCCA) TABLET PO SCH (09:15)
[2019-01-08] MEDS: PANTOPRAZOLE 40 MG TABLET PO SCH (09:15)
[2019-01-08] MEDS: DEXTROSE 5% NACL 0.45% 1,000 ML IV SCH (12:01)
[2019-01-09] MEDS: MEROPENEM 500 MG in SODIUM CHLORIDE 0.9% 100 ML IV SCH ×3 (00:25→23:51)
[2019-01-09] MEDS: DEXTROSE 5% NACL 0.45% 1,000 ML IV SCH ×4 (00:30→23:11)
[2019-01-09 04:46] LABS: Basophils % 0.2 % (0.0-0.8); Eosinophils # 0.2 10*3/uL (0.0-0.87); Eosinophils % 0.8 % (0.00-10.9); Hematocrit 30.2 VOL% (42.0-52.0); Hemoglobin 9.7 GM/DL (14.0-18.0); Immature Granulocytes % 1.3 %; Immature Granulocytes Absolute 0.24 #; Lymphocytes # 0.9 10*3/uL (1.4-4.0); Lymphocytes % 4.8 % (21.2-54.2); Mean Corpuscular HGB Conc 32.1 GM/DL (32-36); Mean Corpuscular Volume 107.1 FL (87-102); Mean Platelet Volume 12.1 FL (9.6-12.0); Monocytes % 4.9 % (1.7-12.7); NRBC # 1.17 10*3/uL; Platelet Count 127 T/CUMM (130-400); Red Blood Count 2.82 MC/CUMM (3.8-5.5); Red Cell Distribution Width 14.6 % (9.3-17.3); White Blood Count 18.3 T/CUMM (4-12)
[2019-01-09 05:05] LABS: Osmolality,Calculated 326.8 MOS/KG (273-304)
[2019-01-09 05:16] LABS: Lymphocytes 4 % (20-55); Nucleated Red Blood Cells 7 (0-5); Segmented Neutrophils 94 % (50-85); Total Cells Counted 100
[2019-01-09 05:19] LABS: Anisocytosis 1+; Platelet Estimate Normal
[2019-01-09] MEDS: ALBUMIN 25% 25 GM in PREMIX 1 EACH IV SCH ×3 (05:40→21:44)
[2019-01-09] MEDS: SERTRALINE 100 MG TABLET PO SCH (08:38)
[2019-01-09] MEDS: FINASTERIDE 5 MG TABLET PO SCH (08:38)
[2019-01-09] MEDS: PANTOPRAZOLE 40 MG TABLET PO SCH (08:38)
[2019-01-09] MEDS: RANOLAZINE 500 MG TABLET PO SCH ×2 (08:38→21:43)
[2019-01-09] MEDS: MULTIVITAMIN (BEROCCA) TABLET PO SCH (08:38)
[2019-01-09] MEDS: GEMFIBROZIL 600 MG TABLET PO SCH (08:39)
[2019-01-09] MEDS: carvediloL 3.125 MG TABLET PO SCH (08:39)
[2019-01-09] MEDS: ASPIRIN EC 81 MG TABLET PO SCH (08:39)
[2019-01-09] MEDS: TAMSULOSIN 0.4 MG CAPSULE PO SCH (08:39)
[2019-01-09] MEDS: FEXOFENADINE 180 MG TABLET PO SCH (08:39)
[2019-01-09] MEDS: HYDROXYCHLOROQUINE 200 MG TABLET PO SCH (08:53)
[2019-01-09] MEDS: ACETAMINOPHEN 325 MG TABLET PO PRN (18:20)
[2019-01-09] MEDS: METOPROLOL TARTRATE 25 MG TABLET PO SCH (21:44)
[2019-01-10] MEDS: DEXTROSE 5% NACL 0.45% 1,000 ML IV SCH ×2 (03:03→11:35)
[2019-01-10 04:55] LABS: Basophils % 0.1 % (0.0-0.8); Eosinophils # 0.2 10*3/uL (0.0-0.87); Eosinophils % 1.1 % (0.00-10.9); Hematocrit 28.3 VOL% (42.0-52.0); Hemoglobin 9.3 GM/DL (14.0-18.0); Immature Granulocytes % 1.1 %; Immature Granulocytes Absolute 0.18 #; Lymphocytes # 0.8 10*3/uL (1.4-4.0); Lymphocytes % 4.5 % (21.2-54.2); Mean Corpuscular HGB Conc 32.9 GM/DL (32-36); Mean Corpuscular Volume 107.2 FL (87-102); Mean Platelet Volume 12.5 FL (9.6-12.0); Monocytes % 4.8 % (1.7-12.7); NRBC # 0.85 10*3/uL; Neutrophils % 88.4 % (38.7-73.9); Platelet Count 117 T/CUMM (130-400); Red Blood Count 2.64 MC/CUMM (3.8-5.5); Red Cell Distribution Width 15.7 % (9.3-17.3); White Blood Count 16.6 T/CUMM (4-12)
[2019-01-10 05:25] LABS: Albumin 3.8 G/DL (3.4-5.0); Bilirubin,Direct 1.19 MG/DL (0.0-0.20); Bilirubin,Indirect 0.6 MG/DL (0.0-1.0); Bilirubin,Total 1.8 MG/DL (0.2-1.0)
[2019-01-10 05:25] LABS: Osmolality,Calculated 319.3 MOS/KG (273-304)
[2019-01-10 05:26] LABS: Eosinophils 1 % (0-10); Lymphocytes 4 % (20-55); Nucleated Red Blood Cells 5 (0-5); Segmented Neutrophils 94 % (50-85); Total Cells Counted 100
[2019-01-10 05:27] LABS: Anisocytosis 1+; Ovalocytes 1+; Platelet Estimate Adequate
[2019-01-10] MEDS: ALBUMIN 25% 25 GM in PREMIX 1 EACH IV SCH (05:54)
[2019-01-10] MEDS ORDERED: ROSUVASTATIN 10 MG TABLET PO SCH (09:00)
[2019-01-10] MEDS: SERTRALINE 100 MG TABLET PO SCH (10:06)
[2019-01-10] MEDS: METOPROLOL TARTRATE 25 MG TABLET PO SCH (10:06)
[2019-01-10] MEDS: HYDROXYCHLOROQUINE 200 MG TABLET PO SCH (10:06)
[2019-01-10] MEDS: PANTOPRAZOLE 40 MG TABLET PO SCH (10:06)
[2019-01-10] MEDS: TAMSULOSIN 0.4 MG CAPSULE PO SCH (10:06)
[2019-01-10] MEDS: FINASTERIDE 5 MG TABLET PO SCH (10:06)
[2019-01-10] MEDS: RANOLAZINE 500 MG TABLET PO SCH (10:06)
[2019-01-10] MEDS: ASPIRIN EC 81 MG TABLET PO SCH (10:06)
[2019-01-10] MEDS: FEXOFENADINE 180 MG TABLET PO SCH (10:06)
[2019-01-10] MEDS: MULTIVITAMIN (BEROCCA) TABLET PO SCH (10:06)
[2019-01-10 12:17] VITALS: BP 108/45
[2019-01-10] MEDS ORDERED: ATROPINE 1 MG/10 ML SYRINGE IV ONE ×2 (12:20→12:32)
[2019-01-10] MEDS ORDERED: SODIUM CHLORIDE 0.9% 2,000 ML IV ONE (12:21)
[2019-01-10 12:31] LABS: Basophils % 0.1 % (0.0-0.8); Eosinophils # 0.1 10*3/uL (0.0-0.87); Eosinophils % 0.3 % (0.00-10.9); Hematocrit 28.1 VOL% (42.0-52.0); Hemoglobin 9.1 GM/DL (14.0-18.0); Immature Granulocytes Absolute 0.19 #; Lymphocytes # 0.8 10*3/uL (1.4-4.0); Lymphocytes % 4.2 % (21.2-54.2); Mean Corpuscular HGB Conc 32.4 GM/DL (32-36); Mean Corpuscular Volume 106.8 FL (87-102); Mean Platelet Volume 12.1 FL (9.6-12.0); Monocytes % 3.3 % (1.7-12.7); NRBC # 0.51 10*3/uL; Neutrophils % 91.1 % (38.7-73.9); Platelet Count 120 T/CUMM (130-400); Red Blood Count 2.63 MC/CUMM (3.8-5.5); Red Cell Distribution Width 15.8 % (9.3-17.3); White Blood Count 19.3 T/CUMM (4-12)
[2019-01-10 12:49] LABS: Calcium 7.7 MG/DL (8.5-10.1); Osmolality,Calculated 324.1 MOS/KG (273-304)
[2019-01-10 12:52] LABS: Band Neutrophils 3 % (0-10); Lymphocytes 4 % (20-55); Nucleated Red Blood Cells 1 (0-5); Platelet Estimate Adequate; Poikilocytosis Slight; Polychromasia Slight; Segmented Neutrophils 88 % (50-85); Total Cells Counted 100
[2019-01-10 12:53] LABS: Anisocytosis 2+; Macrocytosis 1+
== END 2019-01-10 12:53 | disposition expired | DRG 871 ==
LOC: N.TELES → SUATTDRO 20:31
PROVIDERS: ADMIT Internal Medicine; ATTEND Internal Medicine